=== PATIENT | female | born 1950 | race Caucasian/White ===

== ENCOUNTER 2017-06-19 05:47 | Inpatient (IN) | payer BC ==
[~2017-06-19] VITALS: Ht 167.6 cm; Wt 94.8 kg
[2017-06-19] MEDS ORDERED: SODIUM CHLORIDE 0.9% 1,000 ML IV ONE (07:03)
[2017-06-19] MEDS ORDERED: cefTRIAXone 1GM/10ml IVPUSH 10 ML IV ONE (07:15)
[2017-06-19 07:56] LABS: Basophils # (auto) 0.1 uL; Basophils % (auto) 1.2 % (0.0-2.0); Eosinophils # (auto) 0.2 uL; Eosinophils % (auto) 2.6 % (0.0-7.0); Hematocrit 39.7 % (36.0-46.0); Hemoglobin 13.5 g/dL (12.2-16.2); Lymphocytes % (auto) 22.5 % (10.0-50.0); Mean Corpuscular Hemoglobin 32.3 pg (28.0-32.0); Monocytes # (auto) 0.9 uL; Monocytes % (auto) 10.4 % (0.0-12.0); Neutrophils # (auto) 5.6 uL; Neutrophils % (auto) 63.3 % (37.0-80.0); Nucleated Red Blood Cells % 0.1 %; Platelet Count (auto) 307 10^3/uL (140-450); Red Blood Cells 4.18 10^6/uL (4.0-5.20); Red Cell Distribution Width 14.8 % (11.8-14.3); White Blood Cell 8.8 10^3/uL (4.4-10.8)
[2017-06-19 08:08] LABS: INR 0.92 (0.9-1.15); Partial Thromboplastin Time 24.5 sec (22.64-33.71)
[2017-06-19 08:23] LABS: Albumin 3.5 g/dL (3.4-5.0); BUN/Creatinine Ratio 26.9; Bilirubin, Total 0.3 mg/dL (0.2-1.0); Calcium 9.1 mg/dL (8.5-10.1); Potassium 3.7 mmol/L (3.5-5.1); Total Protein 7.1 g/dL (6.4-8.2)
[2017-06-19 08:35] LABS: Lactic Acid w/Reflex 2.3 mmol/L (0.4-2.0)
[2017-06-19] MEDS ORDERED: MORPHINE SULF INJ 2 MG/ML SYRINGE 1ML IV PRN (09:00)
[2017-06-19] MEDS ORDERED: TEMAZEPAM 15 MG CAP PO PRN (09:00)
[2017-06-19] MEDS ORDERED: DEXTROSE (50%) 50ML SYRG IV PRN (09:00)
[2017-06-19] MEDS ORDERED: MORPHINE SULFATE 10 MG/ML INJ 1ML SDV IV PRN (09:00)
[2017-06-19] MEDS ORDERED: NITROGLYCERIN 0.4 MG SL TAB SL PRN (09:00)
[2017-06-19] MEDS ORDERED: PROMETHAZINE HCL 25 MG/ML 1ML IV PRN (09:00)
[2017-06-19] MEDS ORDERED: LACTULOSE 20Gm/30ML SOLN PO PRN (09:00)
[2017-06-19] MEDS: SODIUM CHLORIDE 0.9% 1,000 ML IV SCH (09:49)
[2017-06-19] MEDS: ENOXAPARIN SOD 40 MG/0.4 ML SYRINGE SC SCH (10:00)
[2017-06-19] MEDS: LEVOFLOXACIN 500MG 100 ML IV SCH (10:00)
[2017-06-19] MEDS ORDERED: MORPHINE SULF INJ 2 MG/ML SYRINGE 1ML ONE (10:42)
[2017-06-19] MEDS: ACCU-CHEK COMFORT CURVE STRIP VI SCH ×3 (10:48→22:00)
[2017-06-19] MEDS: InsuLIN REG 1unit/0.01ml Soln (100units/ml) SC SCH ×3 (10:48→22:00)
[2017-06-19 10:58] LABS: Urine Bacteria NONE SEEN /hpf (None Seen); Urine Blood Negative /uL (Negative); Urine Specific Gravity 1.018 (1.001-1.035); Urine WBC 1 /hpf (0 - 5)
[2017-06-19] MEDS ORDERED: PIO30T PO (12:58)
[2017-06-19] MEDS ORDERED: ENA2.5T PO (12:58)
[2017-06-19] MEDS ORDERED: LOSA25TA9 PO (12:58)
[2017-06-19] MEDS ORDERED: ACE3T PO (12:58)
[2017-06-19] MEDS ORDERED: METF500T PO (12:58)
[2017-06-19] MEDS ORDERED: GLIP-115 PO (12:58)
[2017-06-19] MEDS ORDERED: ASPI81TA27 PO (12:58)
[2017-06-19] MEDS: CLINDAMYCIN 600MG IV 50 ML IV SCH ×2 (14:34→22:34)
[2017-06-19] MEDS: HYDROcodone-ACET 5/325MG TAB PO PRN ×2 (14:35→20:39)
[2017-06-19 16:33] VITALS: BP 135/66
[2017-06-19] MEDS: ACETAMINOPHEN 500 MG TAB PO PRN (17:44)
[2017-06-19] MEDS: LORazepam 0.5 MG TAB PO PRN (17:44)
[2017-06-19 22:00] VITALS: BP 138/65
[2017-06-19] MEDS: ATORVASTATIN 20 MG TAB PO SCH (22:34)
[2017-06-20] MEDS: HYDROcodone-ACET 10/325MG TAB PO PRN ×5 (00:52→20:46)
[2017-06-20] MEDS: SODIUM CHLORIDE 0.9% 1,000 ML IV SCH ×3 (04:56→13:47)
[2017-06-20 05:00] VITALS: BP 141/69
[2017-06-20 05:58] LABS: Cholesterol 114 mg/dL (< 200); HDL Cholesterol 57 mg/dL (40-59); LDL Cholesterol 49 mg/dL (< 100); Triglycerides 124 mg/dL (< 150)
[2017-06-20] MEDS: CLINDAMYCIN 600MG IV 50 ML IV SCH ×3 (06:39→22:49)
[2017-06-20] MEDS: InsuLIN REG 1unit/0.01ml Soln (100units/ml) SC SCH ×4 (06:47→22:00)
[2017-06-20] MEDS: ACCU-CHEK COMFORT CURVE STRIP VI SCH ×4 (06:48→22:00)
[2017-06-20 08:00] VITALS: BP 132/67
[2017-06-20] MEDS: ENOXAPARIN SOD 40 MG/0.4 ML SYRINGE SC SCH (09:08)
[2017-06-20] MEDS: LEVOFLOXACIN 500MG 100 ML IV SCH (09:08)
[2017-06-20 09:23] VITALS: BP 132/67
[2017-06-20 11:35] VITALS: BP 133/68
[2017-06-20] MEDS ORDERED: VANCOMYCIN PER PHARMACY 0 MG IV SCH (14:45)
[2017-06-20] MEDS ORDERED: VANCOMYCIN 1GM/250ML 250 ML IV ONE (16:00)
[2017-06-20 16:47] VITALS: BP 137/62
[2017-06-20] MEDS: VANCOMYCIN 1GM/250ML 250 ML IV SCH (18:27)
[2017-06-20] MEDS ORDERED: MORPHINE SULFATE 4 MG/ML SYR/VIAL IV PRN (20:00)
[2017-06-20] MEDS: LORazepam 0.5 MG TAB PO PRN (20:46)
[2017-06-20 22:00] VITALS: BP 123/60
[2017-06-20] MEDS: ATORVASTATIN 20 MG TAB PO SCH (22:49)
[2017-06-21] MEDS: SODIUM CHLORIDE 0.9% 1,000 ML IV SCH ×3 (00:56→20:56)
[2017-06-21] MEDS: HYDROcodone-ACET 10/325MG TAB PO PRN ×3 (03:24→20:09)
[2017-06-21 05:47] VITALS: BP 141/67
[2017-06-21 06:45] LABS: Albumin 3.2 g/dL (3.4-5.0); BUN/Creatinine Ratio 18.8; Bilirubin, Total 0.3 mg/dL (0.2-1.0); Calcium 9.1 mg/dL (8.5-10.1); Total Protein 6.2 g/dL (6.4-8.2)
[2017-06-21] MEDS: InsuLIN REG 1unit/0.01ml Soln (100units/ml) SC SCH ×2 (07:00→11:30)
[2017-06-21] MEDS: CLINDAMYCIN 600MG IV 50 ML IV SCH ×3 (07:04→22:54)
[2017-06-21] MEDS: ACCU-CHEK COMFORT CURVE STRIP VI SCH ×2 (07:08→12:05)
[2017-06-21] MEDS ORDERED: IOHEXOL 350 MG/ML 100ML IJ ONE ×2 (07:24→09:29)
[2017-06-21] MEDS ORDERED: LIDOCAINE 2%HCL (LOCAL ANESTH.) INJ 20ML MDV ONE ×2 (07:24→09:21)
[2017-06-21] MEDS ORDERED: ANGIOMAX 250 MG VIAL IV ONE (07:56)
[2017-06-21] MEDS ORDERED: fentaNYL CITRATE 100 MCG/2 ML VL ONE (07:56)
[2017-06-21] MEDS ORDERED: SODIUM CHL 0.9% 50 ML ONE (07:57)
[2017-06-21] MEDS ORDERED: MIDAZOLAM HCL 1MG/1ML-2 ML VIAL ONE (07:57)
[2017-06-21 08:00] VITALS: BP 116/59
[2017-06-21] MEDS: VANCOMYCIN 1GM/250ML 250 ML IV SCH ×2 (08:30→12:05)
[2017-06-21 08:39] VITALS: BP 116/59
[2017-06-21] MEDS ORDERED: diphenhdrAMINE HCL 50 MG/1 ML VL ONE (09:25)
[2017-06-21] MEDS: ENOXAPARIN SOD 40 MG/0.4 ML SYRINGE SC SCH (10:00)
[2017-06-21] MEDS ORDERED: CLOPIDOGREL 300 MG TAB ONE (10:03)
[2017-06-21] MEDS: MORPHINE SULFATE 4 MG/ML SYR/VIAL IV PRN ×3 (12:12→22:54)
[2017-06-21 14:22] VITALS: BP 157/75
[2017-06-21 16:52] VITALS: BP 103/74
[2017-06-21 22:00] VITALS: BP 123/51
[2017-06-21] MEDS: ATORVASTATIN 20 MG TAB PO SCH (22:52)
[2017-06-22] MEDS: VANCOMYCIN 1GM/250ML 250 ML IV SCH ×2 (04:54→21:22)
[2017-06-22] MEDS: HYDROcodone-ACET 10/325MG TAB PO PRN ×4 (04:55→21:48)
[2017-06-22 05:30] VITALS: BP 133/62
[2017-06-22] MEDS: CLINDAMYCIN 600MG IV 50 ML IV SCH ×3 (06:58→22:45)
[2017-06-22] MEDS: SODIUM CHLORIDE 0.9% 1,000 ML IV SCH ×2 (06:59→13:40)
[2017-06-22 07:25] LABS: Calcium 8.7 mg/dL (8.5-10.1); Potassium 3.8 mmol/L (3.5-5.1)
[2017-06-22 07:29] LABS: Albumin 3.1 g/dL (3.4-5.0); BUN/Creatinine Ratio 21.5; Bilirubin, Total 0.3 mg/dL (0.2-1.0)
[2017-06-22 08:00] VITALS: BP 133/63
[2017-06-22] MEDS: ENOXAPARIN SOD 40 MG/0.4 ML SYRINGE SC SCH (09:00)
[2017-06-22] MEDS: MORPHINE SULFATE 4 MG/ML SYR/VIAL IV PRN ×2 (10:24→18:24)
[2017-06-22 13:00] VITALS: BP 121/54
[2017-06-22 17:00] VITALS: BP 128/58
[2017-06-22 21:30] VITALS: BP 136/58
[2017-06-22] MEDS: ATORVASTATIN 20 MG TAB PO SCH (21:47)
[2017-06-23] MEDS: MORPHINE SULFATE 4 MG/ML SYR/VIAL IV PRN ×2 (00:03→05:44)
[2017-06-23] MEDS: SODIUM CHLORIDE 0.9% 1,000 ML IV SCH ×3 (02:56→22:56)
[2017-06-23 05:00] VITALS: BP 125/54
[2017-06-23] MEDS: CLINDAMYCIN 600MG IV 50 ML IV SCH ×3 (05:44→21:23)
[2017-06-23 06:10] LABS: Basophils # (auto) 0.1 uL; Basophils % (auto) 0.9 % (0.0-2.0); Eosinophils # (auto) 0.3 uL; Eosinophils % (auto) 3.8 % (0.0-7.0); Hematocrit 30.2 % (36.0-46.0); Hemoglobin 10.4 g/dL (12.2-16.2); Lymphocytes # (auto) 1.5 uL; Lymphocytes % (auto) 20.1 % (10.0-50.0); Mean Corpuscular Hemoglobin 32.5 pg (28.0-32.0); Mean Corpuscular Hgb Conc. 34.6 g/dL (32.0-36.0); Monocytes # (auto) 0.9 uL; Monocytes % (auto) 12.2 % (0.0-12.0); Neutrophils # (auto) 4.6 uL; Nucleated Red Blood Cells % 0.1 %; Platelet Count (auto) 210 10^3/uL (140-450); Red Blood Cells 3.21 10^6/uL (4.0-5.20); Red Cell Distribution Width 14.3 % (11.8-14.3); White Blood Cell 7.4 10^3/uL (4.4-10.8)
[2017-06-23 09:00] VITALS: BP_SYST 117; BP_SYST 134; BP_DIAS 52; BP_DIAS 57
[2017-06-23] MEDS: ENOXAPARIN SOD 40 MG/0.4 ML SYRINGE SC SCH (09:52)
[2017-06-23 13:00] VITALS: BP 117/52
[2017-06-23] MEDS: HYDROcodone-ACET 10/325MG TAB PO PRN ×3 (13:02→21:24)
[2017-06-23 17:00] VITALS: BP 115/43
[2017-06-23] MEDS: ATORVASTATIN 20 MG TAB PO SCH (21:24)
[2017-06-23 21:30] VITALS: BP 105/75
[2017-06-24] MEDS: HYDROcodone-ACET 10/325MG TAB PO PRN ×4 (02:44→22:23)
[2017-06-24 05:00] VITALS: BP 142/75
[2017-06-24] MEDS: MORPHINE SULFATE 4 MG/ML SYR/VIAL IV PRN (05:04)
[2017-06-24] MEDS: CLINDAMYCIN 600MG IV 50 ML IV SCH ×3 (05:36→22:00)
[2017-06-24 09:00] VITALS: BP 133/55
[2017-06-24] MEDS: ENOXAPARIN SOD 40 MG/0.4 ML SYRINGE SC SCH (10:39)
[2017-06-24] MEDS ORDERED: MORPHINE SULFATE 4 MG/ML SYR/VIAL IV PRN (12:15)
[2017-06-24 13:00] VITALS: BP 132/57
[2017-06-24] MEDS: SODIUM CHLORIDE 0.9% 1,000 ML IV SCH ×2 (15:57→19:15)
[2017-06-24 17:00] VITALS: BP 124/55
[2017-06-24 22:00] VITALS: BP 132/55
[2017-06-24] MEDS: ATORVASTATIN 20 MG TAB PO SCH (22:22)
[2017-06-24] MEDS: LORazepam 0.5 MG TAB PO PRN (22:23)
[2017-06-25] MEDS: SODIUM CHLORIDE 0.9% 1,000 ML IV SCH ×2 (04:52→15:00)
[2017-06-25] MEDS: HYDROcodone-ACET 10/325MG TAB PO PRN ×3 (04:54→22:01)
[2017-06-25 05:43] VITALS: BP 129/62
[2017-06-25] MEDS: CLINDAMYCIN 600MG IV 50 ML IV SCH ×3 (05:46→22:02)
[2017-06-25 09:00] VITALS: BP 135/71
[2017-06-25] MEDS: LORazepam 0.5 MG TAB PO PRN (09:10)
[2017-06-25] MEDS: ENOXAPARIN SOD 40 MG/0.4 ML SYRINGE SC SCH (09:48)
[2017-06-25] MEDS ORDERED: BUPIVACAINE 0.75% INJ 10ML MPV SDV IJ ONE (12:04)
[2017-06-25] MEDS ORDERED: CLINDAMYCIN 900MG IV 50 ML IV ONE (12:42)
[2017-06-25] MEDS ORDERED: MIDAZOLAM HCL 1MG/1ML-2 ML VIAL ONE (12:42)
[2017-06-25] MEDS ORDERED: fentaNYL CITRATE 100 MCG/2 ML VL ONE (12:42)
[2017-06-25 13:00] VITALS: BP 128/56
[2017-06-25] MEDS ORDERED: PROPOFOL 10 MG/ML 20 ML IV ONE (13:12)
[2017-06-25] MEDS ORDERED: ONDANSETRON HCL 4 MG/2 ML VIAL IV ONE (13:30)
[2017-06-25] MEDS ORDERED: MORPHINE SULFATE 4 MG/ML SYR/VIAL IV PRN (13:30)
[2017-06-25] MEDS ORDERED: ePHEDrine SULFATE 50 MG/ML AMP IV PRN (13:30)
[2017-06-25] MEDS ORDERED: LABETALOL HCL 5 MG/ML 4ML SYRINGE IV PRN (13:30)
[2017-06-25] MEDS ORDERED: KETOROLAC TROMETH 30 MG/ML 1ML VIAL IV ONE (13:30)
[2017-06-25] MEDS ORDERED: MIDAZOLAM HCL 1MG/1ML-2 ML VIAL IV PRN (13:30)
[2017-06-25] MEDS ORDERED: MORPHINE SULFATE 4 MG/ML SYR/VIAL IV ONE (14:00)
[2017-06-25 16:54] VITALS: BP_SYST 126; BP_SYST 141; BP_DIAS 60; BP_DIAS 64
[2017-06-25 22:00] VITALS: BP 126/53
[2017-06-25] MEDS: ATORVASTATIN 20 MG TAB PO SCH (22:01)
[2017-06-26] MEDS: SODIUM CHLORIDE 0.9% 1,000 ML IV SCH ×2 (02:25→10:52)
[2017-06-26] MEDS: HYDROcodone-ACET 10/325MG TAB PO PRN ×2 (05:15→11:14)
[2017-06-26] MEDS: CLINDAMYCIN 600MG IV 50 ML IV SCH ×2 (05:16→13:43)
[2017-06-26 05:20] VITALS: BP 149/77
[2017-06-26 06:06] LABS: Basophils # (auto) 0.1 uL; Basophils % (auto) 0.6 % (0.0-2.0); Eosinophils # (auto) 0 uL; Hematocrit 30.2 % (36.0-46.0); Hemoglobin 10.4 g/dL (12.2-16.2); Lymphocytes % (auto) 10.7 % (10.0-50.0); Mean Corpuscular Hemoglobin 32.2 pg (28.0-32.0); Mean Corpuscular Hgb Conc. 34.6 g/dL (32.0-36.0); Mean Corpuscular Volume 93.1 fL (80.0-100.0); Monocytes # (auto) 0.7 uL; Monocytes % (auto) 7.1 % (0.0-12.0); Neutrophils # (auto) 7.6 uL; Neutrophils % (auto) 81.6 % (37.0-80.0); Platelet Count (auto) 270 10^3/uL (140-450); Red Blood Cells 3.24 10^6/uL (4.0-5.20); Red Cell Distribution Width 14.1 % (11.8-14.3); White Blood Cell 9.3 10^3/uL (4.4-10.8)
[2017-06-26 06:12] LABS: BUN/Creatinine Ratio 24.6; Calcium 8.9 mg/dL (8.5-10.1)
[2017-06-26 09:00] VITALS: BP 142/65
[2017-06-26] MEDS: ENOXAPARIN SOD 40 MG/0.4 ML SYRINGE SC SCH (10:51)
[2017-06-26 11:40] VITALS: BP 146/56
[2017-06-26 13:00] VITALS: BP 146/59
[2017-06-26] MEDS: ACETAMINOPHEN 500 MG TAB PO PRN (14:13)
[2017-07-11] MEDS ORDERED: CLIN1CAP4 PO (11:26)
[2017-07-11] MEDS ORDERED: HYDR-4683 PO (11:26)
[2017-07-11] MEDS ORDERED: SACC250C PO (11:26)
[2017-07-26] MEDS ORDERED: GLIM2TAB33 PO (11:17)
[2017-07-26] MEDS ORDERED: LOVA40TA72 PO (11:17)
== END 2017-06-26 15:35 | disposition home or self-care (01) | DRG 624 ==
LOC: ER 05:52 → TELE 05:53 → TELE-WESTW 12:08
PROVIDERS: ADMIT Internal Medicine; ATTEND Family Medicine
PROC: 047C3ZZ Dilation of Right Common Iliac Artery, Percutaneous Approach (ICD-10-PCS; 2017-06-21)
PROC: 047K3ZZ Dilation of Right Femoral Artery, Percutaneous Approach (ICD-10-PCS; 2017-06-21)
PROC: 04CK3ZZ Extirpation of Matter from Right Femoral Artery, Percutaneous Approach (ICD-10-PCS; 2017-06-21)
PROC: B41G1ZZ Fluoroscopy of Left Lower Extremity Arteries using Low Osmolar Contrast (ICD-10-PCS; 2017-06-21)
PROC: B41F1ZZ Fluoroscopy of Right Lower Extremity Arteries using Low Osmolar Contrast (ICD-10-PCS; 2017-06-21)
PROC: 0HDRXZZ Extraction of Toe Nail, External Approach (ICD-10-PCS; 2017-06-25)
PROC: 0JBQ0ZZ Excision of Right Foot Subcutaneous Tissue and Fascia, Open Approach (ICD-10-PCS; principal; 2017-06-25 12:00)
DX: E11.621 Type 2 diabetes mellitus with foot ulcer (principal); L97.512 Non-pressure chronic ulcer of other part of right foot with fat layer exposed; L03.031 Cellulitis of right toe; E78.5 Hyperlipidemia, unspecified; E11.622 Type 2 diabetes mellitus with other skin ulcer; I71.4 Abdominal aortic aneurysm, without rupture; E66.9 Obesity, unspecified; L60.0 Ingrowing nail; Z79.4 Long term (current) use of insulin; Z83.3 Family history of diabetes mellitus; Z68.33 Body mass index [BMI] 33.0-33.9, adult; Z88.0 Allergy status to penicillin
CPT/HCPCS: 34201; 36415; 37220; 37224; 71046; 73630; 73718; 74176; 75716; 80048; 80053; 80061; 80202; 81001; 82962; 83036; 83605; 83735; 84443; 85025; 85610; 85652; 85730; 87040; 87077; 87186; 87205; 93005; 93306; 93926; 96361; 96365; 96372; 96375; 99152; 99153; J1956; J2250; J2704; J3490

== ENCOUNTER 2017-07-09 15:58 | Inpatient (IN) | payer BC ==
[~2017-07-09] VITALS: Ht 167.6 cm; Wt 92.5 kg
[~2017-07-09 15:58] MED LIST: ACE3T PO; ASPI81TA27 PO; ENA2.5T PO; GLIP-115 PO; LOSA25TA9 PO; METF500T PO; PIO30T PO
[2017-07-09 19:00] LABS: Basophils # (auto) 0 uL; Basophils % (auto) 0.3 % (0.0-2.0); Eosinophils # (auto) 0.2 uL; Eosinophils % (auto) 1.9 % (0.0-7.0); Hemoglobin 12.9 g/dL (12.2-16.2); Lymphocytes # (auto) 1.7 uL; Lymphocytes % (auto) 18.1 % (10.0-50.0); Mean Corpuscular Hemoglobin 32.3 pg (28.0-32.0); Mean Corpuscular Hgb Conc. 33.9 g/dL (32.0-36.0); Mean Corpuscular Volume 95.1 fL (80.0-100.0); Monocytes # (auto) 0.8 uL; Monocytes % (auto) 8.8 % (0.0-12.0); Neutrophils # (auto) 6.8 uL; Neutrophils % (auto) 70.9 % (37.0-80.0); Nucleated Red Blood Cells % 0.1 %; Platelet Count (auto) 378 10^3/uL (140-450); Red Cell Distribution Width 15.2 % (11.8-14.3); White Blood Cell 9.6 10^3/uL (4.4-10.8)
[2017-07-09 19:07] LABS: INR 0.92 (0.9-1.15)
[2017-07-09 19:11] LABS: Albumin 3.8 g/dL (3.4-5.0); BUN/Creatinine Ratio 17.9; Calcium 9.6 mg/dL (8.5-10.1); Potassium 4.4 mmol/L (3.5-5.1)
[2017-07-09 19:13] LABS: Bilirubin, Total 0.4 mg/dL (0.2-1.0); Total Protein 7.3 g/dL (6.4-8.2)
[2017-07-09] MEDS ORDERED: ONDANSETRON HCL 4 MG/2 ML VIAL IV PRN (22:30)
[2017-07-09] MEDS ORDERED: TEMAZEPAM 15 MG CAP PO PRN (22:30)
[2017-07-09] MEDS ORDERED: ACETAMINOPHEN 325 MG TAB PO PRN (22:30)
[2017-07-09] MEDS ORDERED: DEXTROSE (50%) 50ML SYRG IV PRN (22:30)
[2017-07-09] MEDS ORDERED: CLINDAMYCIN 600MG IV 50 ML IV ONE (22:45)
[2017-07-09] MEDS: FAMOTIDINE 20 MG TAB PO SCH (23:54)
[2017-07-09] MEDS: SODIUM CHLORIDE 0.9% 1,000 ML IV SCH (23:55)
[2017-07-10] MEDS: HYDROcodone-ACET 5/325MG TAB PO PRN ×4 (00:04→20:12)
[2017-07-10] MEDS: InsuLIN REG 1unit/0.01ml Soln (100units/ml) SC SCH ×5 (08:14→23:31)
[2017-07-10] MEDS: ACCU-CHEK COMFORT CURVE STRIP VI SCH ×5 (08:14→23:30)
[2017-07-10] MEDS: ENALAPRIL MALEATE 2.5 MG TAB PO SCH (10:00)
[2017-07-10] MEDS: FAMOTIDINE 20 MG TAB PO SCH ×2 (10:00→21:14)
[2017-07-10] MEDS: LOSARTAN POTASSIUM 25 MG TAB PO SCH (10:00)
[2017-07-10] MEDS ORDERED: MIDAZOLAM HCL 1MG/1ML-2 ML VIAL ONE (10:38)
[2017-07-10] MEDS ORDERED: PROPOFOL 10 MG/ML 20 ML IV ONE (10:38)
[2017-07-10] MEDS ORDERED: fentaNYL CITRATE 100 MCG/2 ML VL ONE (10:38)
[2017-07-10] MEDS ORDERED: SODIUM CHLORIDE LOCK 10 ML ONE (10:38)
[2017-07-10] MEDS ORDERED: ONDANSETRON HCL 4 MG/2 ML VIAL ONE (10:38)
[2017-07-10] MEDS ORDERED: CLINDAMYCIN 600MG IV 50 ML IV ONE ×2 (10:41→10:50)
[2017-07-10] MEDS ORDERED: BUPIVACAINE 0.75% INJ 10ML MPV SDV IJ ONE (11:00)
[2017-07-10] MEDS ORDERED: METOCLOPRAMIDE HCL 5MG/ml INJ 2ml VIAL IV ONE (11:30)
[2017-07-10] MEDS ORDERED: ACCU-CHEK COMFORT CURVE STRIP VI ONE (11:30)
[2017-07-10] MEDS: SODIUM CHLORIDE 0.9% 1,000 ML IV SCH (11:36)
[2017-07-10] MEDS ORDERED: MORPHINE SULFATE 4 MG/ML SYR/VIAL IV ONE (12:00)
[2017-07-10] MEDS: MORPHINE SULFATE 4 MG/ML SYR/VIAL IV PRN ×2 (13:44→21:47)
[2017-07-10 13:55] VITALS: BP 116/62
[2017-07-10 14:15] VITALS: BP 116/62
[2017-07-10 16:12] VITALS: BP 120/57
[2017-07-10] MEDS: CLINDAMYCIN 300MG IV 50 ML IV SCH (21:14)
[2017-07-10 22:00] VITALS: BP 121/60
[2017-07-11] MEDS: SODIUM CHLORIDE 0.9% 1,000 ML IV SCH (02:48)
[2017-07-11] MEDS: MORPHINE SULFATE 4 MG/ML SYR/VIAL IV PRN (03:42)
[2017-07-11] MEDS: HYDROcodone-ACET 5/325MG TAB PO PRN ×2 (04:56→09:02)
[2017-07-11 05:00] VITALS: BP 130/57
[2017-07-11] MEDS: CLINDAMYCIN 300MG IV 50 ML IV SCH (05:31)
[2017-07-11] MEDS: InsuLIN REG 1unit/0.01ml Soln (100units/ml) SC SCH ×2 (05:39→12:00)
[2017-07-11] MEDS: ACCU-CHEK COMFORT CURVE STRIP VI SCH ×2 (05:39→13:15)
[2017-07-11 07:43] LABS: Basophils # (auto) 0.1 uL; Eosinophils # (auto) 0.2 uL; Eosinophils % (auto) 2.4 % (0.0-7.0); Hemoglobin 10.9 g/dL (12.2-16.2); Lymphocytes # (auto) 1.4 uL; Lymphocytes % (auto) 19.3 % (10.0-50.0); Mean Corpuscular Hemoglobin 32.2 pg (28.0-32.0); Mean Corpuscular Hgb Conc. 34.2 g/dL (32.0-36.0); Monocytes # (auto) 0.7 uL; Monocytes % (auto) 10.1 % (0.0-12.0); Neutrophils # (auto) 4.9 uL; Neutrophils % (auto) 67.2 % (37.0-80.0); Platelet Count (auto) 278 10^3/uL (140-450); Red Cell Distribution Width 14.8 % (11.8-14.3); White Blood Cell 7.4 10^3/uL (4.4-10.8)
[2017-07-11 08:04] LABS: BUN/Creatinine Ratio 21.1; Calcium 8.4 mg/dL (8.5-10.1); Magnesium 1.6 mg/dL (1.6-2.6); Potassium 4.1 mmol/L (3.5-5.1)
[2017-07-11 09:00] VITALS: BP 140/69
[2017-07-11] MEDS: FAMOTIDINE 20 MG TAB PO SCH (09:01)
[2017-07-11] MEDS ORDERED: MAGNESIUM SULFATE 1GM/100ML 100 ML IV ONE (09:30)
[2017-07-11] MEDS ORDERED: FLORASTOR (S. BOULARDII) 250 MG CAP PO SCH (10:00)
[2017-07-11] MEDS: LOSARTAN POTASSIUM 25 MG TAB PO SCH (10:00)
[2017-07-11] MEDS: ENALAPRIL MALEATE 2.5 MG TAB PO SCH (10:00)
[2017-07-11] MEDS ORDERED: SACC250C PO (11:26)
[2017-07-11] MEDS ORDERED: HYDR-4683 PO (11:26)
[2017-07-11] MEDS ORDERED: CLIN1CAP4 PO (11:26)
[2017-07-11 11:36] VITALS: BP 140/69
[2017-07-26] MEDS ORDERED: GLIM2TAB33 PO (11:17)
[2017-07-26] MEDS ORDERED: LOVA40TA72 PO (11:17)
== END 2017-07-11 12:50 | disposition home or self-care (01) | DRG 623 ==
LOC: ER 16:02 → OVERFLOW 16:03 → EAST 07-10 13:55
PROVIDERS: ADMIT Nurse Practitioner; ATTEND Internal Medicine
PROC: 0QBQ0ZZ Excision of Right Toe Phalanx, Open Approach (ICD-10-PCS; 2017-07-10)
PROC: 0JBQ0ZZ Excision of Right Foot Subcutaneous Tissue and Fascia, Open Approach (ICD-10-PCS; principal; 2017-07-10 10:44)
DX: E11.621 Type 2 diabetes mellitus with foot ulcer (principal); L97.518 Non-pressure chronic ulcer of other part of right foot with other specified severity; I96 Gangrene, not elsewhere classified; E11.52 Type 2 diabetes mellitus with diabetic peripheral angiopathy with gangrene; I11.0 Hypertensive heart disease with heart failure; I50.9 Heart failure, unspecified; L03.115 Cellulitis of right lower limb; S92.356A Nondisplaced fracture of fifth metatarsal bone, unspecified foot, initial encounter for closed fracture; G47.00 Insomnia, unspecified; L08.89 Other specified local infections of the skin and subcutaneous tissue; E78.5 Hyperlipidemia, unspecified; I71.4 Abdominal aortic aneurysm, without rupture; Z88.0 Allergy status to penicillin; Z79.899 Other long term (current) drug therapy; Z79.82 Long term (current) use of aspirin; Z79.84 Long term (current) use of oral hypoglycemic drugs; Z98.62 Peripheral vascular angioplasty status
CPT/HCPCS: 36415; 71045; 73630; 80048; 80053; 82962; 83735; 85025; 85610; 85730; 93005; 96374; J2250; J2405; J2704; J3490

== ENCOUNTER 2017-07-31 07:14 | Day surgery (SDC) | payer BC ==
[2017-07-26 10:35] LABS: Basophils # (auto) 0.1 uL; Basophils % (auto) 1.4 % (0.0-2.0); Eosinophils # (auto) 0.2 uL; Eosinophils % (auto) 2.6 % (0.0-7.0); Hematocrit 40.4 % (36.0-46.0); Hemoglobin 13.6 g/dL (12.2-16.2); Lymphocytes # (auto) 1.9 uL; Lymphocytes % (auto) 23.3 % (10.0-50.0); Mean Corpuscular Hemoglobin 31.9 pg (28.0-32.0); Mean Corpuscular Hgb Conc. 33.6 g/dL (32.0-36.0); Mean Corpuscular Volume 94.8 fL (80.0-100.0); Monocytes # (auto) 0.7 uL; Monocytes % (auto) 8.3 % (0.0-12.0); Neutrophils # (auto) 5.2 uL; Neutrophils % (auto) 64.4 % (37.0-80.0); Platelet Count (auto) 357 10^3/uL (140-450); Red Blood Cells 4.26 10^6/uL (4.0-5.20); Red Cell Distribution Width 15.3 % (11.8-14.3); White Blood Cell 8.1 10^3/uL (4.4-10.8)
[2017-07-26 10:38] LABS: Urine Bacteria NONE SEEN /hpf (None Seen); Urine Blood Negative /uL (Negative); Urine Specific Gravity 1.013 (1.001-1.035); Urine WBC 3 /hpf (0 - 5)
[2017-07-26 10:50] LABS: INR 0.89 (0.9-1.15); Prothrombin Time 9.7 sec (9.37-12.3)
[2017-07-26 10:55] LABS: Albumin 3.9 g/dL (3.4-5.0); BUN/Creatinine Ratio 26.3; Bilirubin, Total 0.3 mg/dL (0.2-1.0); Calcium 9.7 mg/dL (8.5-10.1); Total Protein 7.7 g/dL (6.4-8.2)
[~2017-07-31] VITALS: Ht 167.6 cm; Wt 86.2 kg
[~2017-07-31 07:14] MED LIST changes: +GLIM2TAB33 PO; -GLIP-115 PO; -LOSA25TA9 PO; +LOVA40TA72 PO
[2017-07-31] MEDS ORDERED: CLINDAMYCIN 600MG IV 50 ML IV ONE (07:35)
[2017-07-31] MEDS ORDERED: fentaNYL CITRATE 100 MCG/2 ML VL ONE (08:43)
[2017-07-31] MEDS ORDERED: MIDAZOLAM HCL 1MG/1ML-2 ML VIAL ONE (08:43)
[2017-07-31] MEDS ORDERED: PROPOFOL 10 MG/ML 20 ML IV ONE (08:45)
[2017-07-31] MEDS ORDERED: DEXAMETHASONE SOD PHOS 10MG/1ML VIAL INJ ONE (08:45)
[2017-07-31] MEDS ORDERED: BUPIVACAINE 0.75% INJ 10ML MPV SDV IJ ONE (08:59)
[2017-07-31] MEDS ORDERED: NEOMYCIN-BACITRACIN-POLYM 15GM TOP OINT TOP ONE (08:59)
[2017-07-31] MEDS ORDERED: ePHEDrine SULFATE 50 MG/ML AMP IV PRN (09:00)
[2017-07-31] MEDS ORDERED: MIDAZOLAM HCL 1MG/1ML-2 ML VIAL IV PRN (09:00)
[2017-07-31] MEDS ORDERED: HYDROmorphone HCL 2 MG/ML VL IV PRN (09:00)
[2017-07-31] MEDS ORDERED: ACCU-CHEK COMFORT CURVE STRIP VI ONE (09:00)
[2017-07-31] MEDS ORDERED: LABETALOL HCL 5 MG/ML 4ML SYRINGE IV PRN (09:00)
[2017-07-31] MEDS ORDERED: KETOROLAC TROMETH 30 MG/ML 1ML VIAL IV ONE (09:00)
[2017-07-31] MEDS ORDERED: ONDANSETRON HCL 4 MG/2 ML VIAL IV ONE (09:00)
[2017-07-31] MEDS: MORPHINE SULFATE 4 MG/ML SYR/VIAL IV PRN ×2 (09:55→10:25)
[2017-07-31] MEDS ORDERED: MORPHINE SULFATE 4 MG/ML SYR/VIAL IV ONE (10:00)
[2017-07-31 10:41] VITALS: BP 130/67
== END 2017-07-31 10:42 | disposition home or self-care (01) ==
LOC: SUR 07:14
PROVIDERS: ATTEND Podiatrist Foot & Ankle Surgery
DX: L97.519 Non-pressure chronic ulcer of other part of right foot with unspecified severity (principal); I96 Gangrene, not elsewhere classified; E11.9 Type 2 diabetes mellitus without complications; M19.90 Unspecified osteoarthritis, unspecified site; Z88.0 Allergy status to penicillin; E66.9 Obesity, unspecified; I25.10 Atherosclerotic heart disease of native coronary artery without angina pectoris; I10 Essential (primary) hypertension
CPT/HCPCS: 15004; 15275; 36415; 80053; 81001; 82962; 85025; 85610; 85730; 87070; 87075; 87205; C1887; J1100; J1885; J2250; J2270; J2704; J3010; J3490; Q4126

== ENCOUNTER → 2017-09-04 | Day surgery (SDC) | payer BC ==
[2017-09-02 13:16] LABS: Urine Bacteria NONE SEEN /hpf (None Seen); Urine Blood Negative /uL (Negative); Urine Mucus FEW (None Seen); Urine Specific Gravity 1.014 (1.001-1.035); Urine WBC 1 /hpf (0 - 5)
[2017-09-02 13:18] LABS: INR 0.89 (0.9-1.15); Partial Thromboplastin Time 25.3 sec (22.64-33.71); Prothrombin Time 9.7 sec (9.37-12.3)
[2017-09-02 13:37] LABS: Albumin 3.6 g/dL (3.4-5.0); Bilirubin, Total 0.2 mg/dL (0.2-1.0); Calcium 9.3 mg/dL (8.5-10.1); Potassium 4.7 mmol/L (3.5-5.1); Total Protein 7.2 g/dL (6.4-8.2)
[2017-09-02 14:03] LABS: Basophils # (auto) 0.1 uL; Eosinophils # (auto) 0.3 uL; Hematocrit 41.8 % (36.0-46.0); Hemoglobin 14.1 g/dL (12.2-16.2); Lymphocytes # (auto) 2.2 uL; Lymphocytes % (auto) 20.5 % (10.0-50.0); Mean Corpuscular Hemoglobin 31.6 pg (28.0-32.0); Mean Corpuscular Hgb Conc. 33.6 g/dL (32.0-36.0); Mean Corpuscular Volume 94.1 fL (80.0-100.0); Monocytes # (auto) 0.9 uL; Monocytes % (auto) 8.1 % (0.0-12.0); Neutrophils # (auto) 7.3 uL; Neutrophils % (auto) 67.4 % (37.0-80.0); Platelet Count (auto) 289 10^3/uL (140-450); Red Blood Cells 4.44 10^6/uL (4.0-5.20); White Blood Cell 10.8 10^3/uL (4.4-10.8)
[~2017-09-04] VITALS: Ht 167.6 cm; Wt 81.6 kg
[~2017-09-04] MED LIST changes: +ACCU-CHEK COMFORT CURVE STRIP VI ONE; +BUPIVACAINE 0.75% INJ 10ML MPV SDV IJ ONE; +CLINDAMYCIN 600MG IV 50 ML IV ONE; +METF-489 PO; -METF500T PO; +METOCLOPRAMIDE HCL 5MG/ml INJ 2ml VIAL IV ONE; +METOCLOPRAMIDE HCL 5MG/ml INJ 2ml VIAL ONE; +MIDAZOLAM HCL 1MG/1ML-2 ML VIAL ONE; +NEOMYCIN-BACITRACIN-POLYM 15GM TOP OINT TOP ONE; +ONDANSETRON HCL 4 MG/2 ML VIAL ONE; +PROPOFOL 10 MG/ML 20 ML IV ONE; +fentaNYL CITRATE 100 MCG/2 ML VL IV ONE; +fentaNYL CITRATE 100 MCG/2 ML VL ONE
[2017-09-04 17:08] VITALS: BP 144/66
== END | disposition home or self-care (01) ==
LOC: SUR 09:39
PROVIDERS: ATTEND Podiatrist Foot & Ankle Surgery
DX: E11.621 Type 2 diabetes mellitus with foot ulcer (principal); Z88.0 Allergy status to penicillin; E66.9 Obesity, unspecified; Z87.891 Personal history of nicotine dependence; I10 Essential (primary) hypertension; J44.9 Chronic obstructive pulmonary disease, unspecified; I71.4 Abdominal aortic aneurysm, without rupture
CPT/HCPCS: 15004; 15275; 36415; 80053; 81001; 82962; 85025; 85610; 85730; 87070; 87075; C1887; J2250; J2405; J2704; J2765; J3010; J3490; Q4126

== ENCOUNTER 2017-10-09 07:39 | Day surgery (SDC) | payer BC ==
[~2017-10-09 07:39] MED LIST changes: -ACCU-CHEK COMFORT CURVE STRIP VI ONE; -BUPIVACAINE 0.75% INJ 10ML MPV SDV IJ ONE; -CLINDAMYCIN 600MG IV 50 ML IV ONE; -METOCLOPRAMIDE HCL 5MG/ml INJ 2ml VIAL IV ONE; -METOCLOPRAMIDE HCL 5MG/ml INJ 2ml VIAL ONE; -MIDAZOLAM HCL 1MG/1ML-2 ML VIAL ONE; -NEOMYCIN-BACITRACIN-POLYM 15GM TOP OINT TOP ONE; -ONDANSETRON HCL 4 MG/2 ML VIAL ONE; -PROPOFOL 10 MG/ML 20 ML IV ONE; -fentaNYL CITRATE 100 MCG/2 ML VL IV ONE; -fentaNYL CITRATE 100 MCG/2 ML VL ONE
[2017-10-09] MEDS ORDERED: CLINDAMYCIN 600MG IV 50 ML IV ONE (08:18)
[2017-10-09 08:28] LABS: Basophils # (auto) 0.1 uL; Basophils % (auto) 1.3 % (0.0-2.0); Eosinophils # (auto) 0.3 uL; Eosinophils % (auto) 3.3 % (0.0-7.0); Hematocrit 41.4 % (36.0-46.0); Hemoglobin 13.9 g/dL (12.2-16.2); Lymphocytes # (auto) 2.3 uL; Lymphocytes % (auto) 24.9 % (10.0-50.0); Mean Corpuscular Hemoglobin 31.3 pg (28.0-32.0); Mean Corpuscular Hgb Conc. 33.7 g/dL (32.0-36.0); Mean Corpuscular Volume 93.1 fL (80.0-100.0); Monocytes # (auto) 0.9 uL; Monocytes % (auto) 9.5 % (0.0-12.0); Neutrophils # (auto) 5.6 uL; Platelet Count (auto) 286 10^3/uL (140-450); Red Blood Cells 4.45 10^6/uL (4.0-5.20); Red Cell Distribution Width 15.4 % (11.8-14.3); White Blood Cell 9.1 10^3/uL (4.4-10.8)
[2017-10-09 08:38] LABS: INR 0.93 (0.9-1.15); Partial Thromboplastin Time 26.2 sec (23.78-33.04)
[2017-10-09 08:39] LABS: BUN/Creatinine Ratio 30.9; Calcium 9.4 mg/dL (8.5-10.1); Potassium 4.3 mmol/L (3.5-5.1)
[2017-10-09] MEDS ORDERED: BUPIVACAINE 0.75% INJ 10ML MPV SDV IJ ONE (09:29)
[2017-10-09] MEDS ORDERED: NEOMYCIN-BACITRACIN-POLYM 15GM TOP OINT TOP ONE (09:29)
[2017-10-09] MEDS ORDERED: fentaNYL CITRATE 100 MCG/2 ML VL ONE (09:37)
[2017-10-09] MEDS ORDERED: MIDAZOLAM HCL 1MG/1ML-2 ML VIAL ONE (09:37)
[2017-10-09] MEDS ORDERED: PROPOFOL 10 MG/ML 20 ML IV ONE (09:39)
[2017-10-09] MEDS ORDERED: ePHEDrine SULFATE 50 MG/ML AMP IV PRN (10:15)
[2017-10-09] MEDS ORDERED: ONDANSETRON HCL 4 MG/2 ML VIAL IV ONE (10:15)
[2017-10-09] MEDS ORDERED: hydrALAZINE HCL 20 MG/ML VL IV PRN (10:15)
[2017-10-09 10:30] VITALS: BP 120/52
[2017-10-09] MEDS ORDERED: fentaNYL CITRATE 100 MCG/2 ML VL IV ONE (11:00)
== END 2017-10-09 10:45 | disposition home or self-care (01) ==
LOC: SUR 07:39
PROVIDERS: ATTEND Podiatrist Foot & Ankle Surgery
DX: L97.818 Non-pressure chronic ulcer of other part of right lower leg with other specified severity (principal); I71.4 Abdominal aortic aneurysm, without rupture; E11.9 Type 2 diabetes mellitus without complications; I10 Essential (primary) hypertension; E78.00 Pure hypercholesterolemia, unspecified; Z87.891 Personal history of nicotine dependence; Z88.0 Allergy status to penicillin; Z79.899 Other long term (current) drug therapy
CPT/HCPCS: 15004; 15275; 36415; 80048; 82962; 85025; 85610; 85730; J2250; J2704; J3010; J3490; Q4126